=== PATIENT | male | born 1950 | race African-American/Black ===

== ENCOUNTER → 2021-05-22 | Day surgery (SDC) | payer MEDICARE, OTHER ==
[~2021-05-22] VITALS: Ht 177.8 cm; Wt 103.0 kg
[~2021-05-22] MED LIST: ALBU2.5V8 IH; AMLO-186 PO; ATOR20TA58 PO; CELE200C PO; CHOL20002 PO; GLUC1CAP41 PO; HYDR12.575 PO; IV RINGERS,LACTATED 1000ML 1,000 ML IV SCH; LEVO150T5 PO; LOSA100T14 PO; META10TA PO; METF500T16 PO; METH-561 PO; METO-239 PO; METO25TA2 PO; OMEG500C PO; PROPOFOL 10 MG/ML (20ML) VIAL. IV ONE
[2021-05-22 08:15] VITALS: BP 140/75
[2021-05-22 09:15] VITALS: BP 101/64
--- NOTE | 2021-05-22 11:31 | PREOP HP ---
DATE OF SERVICE: 05/22/2021 UPDATED HISTORY AND PHYSICAL REFERRING PHYSICIAN: Dr. Rowdy Valles. REASON: History of colonic polyps and family history of colon cancer. HISTORY: This is a 70-year-old -Cong[place]ese male with past medical history significant for appendectomy, colon resection as well as hypertension, hyperlipidemia, hypothyroidism, is seen for interval exam. The patient has regular bowel movements without diarrhea or constipation. There has been no melena or hematochezia. Family history is positive for colon cancer in maternal aunt. He has had previous colon resection. He is otherwise without additional complaints. PAST MEDICAL HISTORY: Arthritis, hyperlipidemia, hypercholesterolemia, sleep apnea, history of colon resection of the cecum. MEDICATIONS: Include albuterol, amlodipine, atorvastatin, Celebrex, vitamin D, hydrochlorothiazide, levothyroxine, losartan, metformin, methocarbamol, metoprolol and omega 3 fish oil. FAMILY HISTORY: Significant for colon cancer with an aunt. SOCIAL HISTORY: He is a nonsmoker, social drinker. REVIEW OF SYSTEMS: Per records. PHYSICAL EXAMINATION: GENERAL: Reveals a well-nourished, well-developed -[place]ese male who is alert, cooperative, in no acute distress. VITAL SIGNS: Temperature is 97.7, pulse 62, respirations 20. LUNGS: Clear. CARDIOVASCULAR: Reveals an S1, S2, without S3, S4 or appreciable murmur. ABDOMEN: Reveals a soft abdomen, normal bowel sounds, without appreciable hepatosplenomegaly. EXTREMITIES: Reveals no cyanosis, clubbing or edema. IMPRESSION: History of colon polyps and family history of colon cancer. Surveillance exam is recommended at this time. Risks and benefits of the procedure including risk of hemorrhage and perforation with operation have been discussed. The patient would like to proceed at this time. CORI/FELISHA/[facility] – [place] DR: Letty TID: [id number]
== END | disposition home or self-care (01) ==
LOC: SURG 07:59
PROVIDERS: ATTEND Internal Medicine Gastroenterology
DX: Z12.11 Encounter for screening for malignant neoplasm of colon (principal); K64.0 First degree hemorrhoids; K57.30 Diverticulosis of large intestine without perforation or abscess without bleeding; K63.89 Other specified diseases of intestine; M19.90 Unspecified osteoarthritis, unspecified site; I10 Essential (primary) hypertension; E78.00 Pure hypercholesterolemia, unspecified; G47.30 Sleep apnea, unspecified; E03.9 Hypothyroidism, unspecified; E11.9 Type 2 diabetes mellitus without complications; J45.909 Unspecified asthma, uncomplicated; Z86.010 Personal history of colon polyps; Z80.0 Family history of malignant neoplasm of digestive organs; Z87.891 Personal history of nicotine dependence; Z79.84 Long term (current) use of oral hypoglycemic drugs; Z79.899 Other long term (current) drug therapy; Z98.890 Other specified postprocedural states
CPT/HCPCS: 45378; J2704